=== PATIENT | male | born 1995 | race Caucasian/White ===

== ENCOUNTER 2017-02-03 16:06 | Emergency (ER) | payer OTHER ==
[~2017-02-03] VITALS: Ht 188 cm; Wt 111.4 kg
[2017-02-03] MEDS ORDERED: PEPT262T2 PO (16:19)
[2017-02-03] MEDS ORDERED: anti inflammatory PO (16:19)
[2017-02-03] MEDS ORDERED: ZOFR4TAB3 PO (17:44)
[2017-02-03 17:48] VITALS: BP 142/72
== END 2017-02-03 17:59 | disposition home or self-care (01) ==
LOC: M ED 16:06
DX: R11.0 Nausea (principal); R19.7 Diarrhea, unspecified; Z88.0 Allergy status to penicillin; Z88.8 Allergy status to other drugs, medicaments and biological substances